=== PATIENT | male | born 1990 | race African-American/Black ===

== ENCOUNTER 2020-07-17 16:10 | Emergency (ER) | payer OTHER ==
[2020-07-17 16:31] VITALS: BP 109/59
[2020-07-17] MEDS ORDERED: IBUPROFEN 600 MG TABLET PO ONE (16:56)
[2020-07-17] MEDS ORDERED: ACETAMINOPHEN 325 MG TABLET PO ONE (17:03)
--- NOTE | 2020-07-17 17:12 | ER Document Report ---
ED ENT - General Chief Complaint: Sore Throat Stated Complaint: SORE THROAT Time Seen by Provider: 07/17/20 16:56 Notes: CHIEF COMPLAINT: Sore throat and fever for 1 day HPI: 29-year-old male with sore throat and fever for 1 day reports mildly painful swallowing no voice change. No cough nasal congestion or shortness of breath ROS: See HPI - all other systems were reviewed and are otherwise negative Constitutional: + fever Eyes: no drainage, no blurred vision ENT: no runny nose, + sore throat Cardiovascular: no chest pain Resp: no SOB, no cough GI: no vomiting, no diarrhea, no abdominal pain : no dysuria Integumentary: no rash Allergy: no hives Musculoskeletal: no extremity pain or swelling Neurological: no numbness/tingling, no weakness MEDICATIONS: I agree with the patient medications as charted by the RN. ALLERGIES: I agree with the allergies as charted by the RN. PAST MEDICAL HISTORY/PAST SURGICAL HISTORY: Reviewed and agree as charted by RN. SOCIAL HISTORY: Reviewed and agree as charted by RN. FAMILY HISTORY: No significant familial comorbid conditions directly related to patient complaint EXAM: Reviewed vital signs as charted by RN. CONSTITUTIONAL: Alert and oriented and responds appropriately to questions. Well-appearing; well-nourished HEAD: Normocephalic; atraumatic EYES: PERRL; Conjunctivae clear, sclerae non-icteric ENT: normal nose; no rhinorrhea; moist mucous membranes; mildly erythematous w ithout exudate, no uvula edema or deviation, no tonsillar hypertrophy, phonation normal NECK: Supple without meningismus; non-tender; + cervical lymphadenopathy, no masses CARD: RRR; no murmurs, no clicks, no rubs, no gallops; symmetric distal pulses RESP: Normal chest excursion without splinting or tachypnea; breath sounds clear and equal bilaterally; no wheezes, no rhonchi, no rales, pulse oximetry 98% on room air not hypoxic ABD/GI: Normal bowel sounds; non-distended; soft, non-tender, no rebound, no guarding; no palpable organomegaly or masses. BACK: The back appears normal and is non-tender to palpation, there is no CVA tenderness EXT: Normal ROM in all joints; no cyanosis, no effusions, no edema SKIN: Normal color for age and race; warm; dry; good turgor; no acute lesions noted NEURO: Moves all extremities equally; Motor and sensory function intact PSYCH: The patient's mood and manner are appropriate. Grooming and personal hygiene are appropriate. MDM: 29-year-old male with sore throat complaint for 1 day. Is febrile here. Will obtain rapid strep - Related Data Allergies/Adverse Reactions: No Known Allergies Allergy (Unverified 07/17/20 18:04) Past Medical History - Social History Smoking Status: Unknown if Ever Smoked Family History: Reviewed & Not Pertinent Physical Exam - Vital signs Vitals: Temp Pulse Resp BP Pulse Ox 101.1 F H 114 H 18 109/59 L 100 07/17/20 16:30 07/17/20 16:30 07/17/20 16:30 07/17/20 16:30 07/17/20 16:30 Course - Re-evaluation Re-evalutation: 07/17/20 17:50 Patient is told nursing that he is an [employer] duty [employer] and did not know [place] is requesting COVID testing today. Patient states he called [facility] and they sent him here to the hospital for testing because he did not know to go to the [facility]. We will COVID test the patient. 07/17/20 18:31 Rapid strep is negative, person under investigation for COVID-19 self quarantine at home [place] - Vital Signs Vital signs: Temp Pulse Resp BP Pulse Ox 101.1 F H 114 H 18 109/59 L 100 07/17/20 16:30 07/17/20 16:30 07/17/20 16:30 07/17/20 16:30 07/17/20 16:30 Discharge - Discharge Clinical Impression: Fever in adult, Person under investigation for COVID-19, Sore throat Condition: Stable Disposition: HOME, SELF-CARE Instructions: COVID-19 Guidance for Persons Under Investigation Additional Instructions: You are considered a person under investigation for COVID-19 at this time make sure that you self quarantine over the next 2 to 5 days until your tests result. COVID testing generally takes 2 to 5 days, he should receive a call from the hospital about your results. Rapid strep test today was negative Forms: Return to Work
== END 2020-07-17 18:45 | disposition left against medical advice (07) ==
LOC: ER 16:10
DX: J02.9 Acute pharyngitis, unspecified (principal); R50.9 Fever, unspecified; Z20.828 Contact with and (suspected) exposure to other viral communicable diseases
CPT/HCPCS: 87070; 87077; 87880; 99283